=== PATIENT | male | born 1980 | race Caucasian/White ===

== ENCOUNTER 2016-11-07 02:35 | Emergency (ER) | payer SELFPAY ==
[~2016-11-07] VITALS: Ht 175.3 cm; Wt 56.3 kg
[~2016-11-07 02:35] MED LIST: RANI150 PO
[2016-11-07 02:37] VITALS: BP 146/107; PULSE 112; RESP 20; TEMP 98.5; O2SAT 98
[2016-11-07] MEDS ORDERED: ONDANSETRON HCL 4 MG/2 ML VIAL IV ONE (03:15)
[2016-11-07] MEDS ORDERED: SODIUM CHLOR 0.9% 1000 ML INJ 1,000 ML IV ONE (03:15)
[2016-11-07] MEDS ORDERED: PANTOPRAZOLE SODIUM 40 MG VIAL IV PUSH ONE (03:15)
[2016-11-07 03:32] LABS: BACTERIA, URINE OCC /hpf; BLOOD, URINE NEG (NEG); COMMENT (UR) CULT NOT INDICATED; CULTURE IF INDICATED CULT NOT INDICATED; GLUCOSE,URINE NEG (NEG); KETONE, URINE 40 mg/dL (NEG); MUCUS URINE FEW /lpf (OCC); NITRITE,URINE NEG (NEG); URINE COLOR YELLOW (YELLW/STRAW)
[2016-11-07 03:42] LABS: APTT (PATIENT) 27.5 SEC (24.3-30.1); PROTHROMBIN TIME - PATIENT 10.7 SEC (9.8-11.6)
[2016-11-07 03:53] LABS: AUTOMATED NEUTROPHIL # 3.9 TH/MM3 (1.8-7.7); BASOPHIL # 0.1 TH/MM3 (0-0.2); BASOPHIL % 1.6 % (0.0-2.0); EOSINOPHIL # 0.1 TH/MM3 (0-0.4); EOSINOPHIL % 1.9 % (0.0-4.0); HEMATOCRIT 44.3 % (39.0-51.0); HEMO FLAGS DIFF FINAL; LYMPH % 25.4 % (9.0-44.0); LYMPHOCYTE # 1.7 TH/MM3 (1.0-4.8); MEAN CELL VOLUME 92.8 FL (80.0-100.0); MEAN CORPUSCULAR HEMOGLOBIN 32.1 PG (27.0-34.0); MEAN CORPUSCULAR HGB CONC 34.6 % (32.0-36.0); MONO % 13.3 % (0.0-8.0); NEUT % 57.8 % (16.0-70.0); PLATELET COUNT 192 TH/MM3 (150-450); RED BLOOD COUNT 4.77 MIL/MM3 (4.50-5.90); RED CELL DISTRIBUTION WIDTH 12.2 % (11.6-17.2); WHITE BLOOD COUNT 6.7 TH/MM3 (4.0-11.0)
[2016-11-07 04:08] LABS: ALT (GPT) 60 U/L (12-78); ANION GAP 13 MEQ/L (5-15); AST (GOT) 80 U/L (15-37); BLOOD UREA NITROGEN 5 MG/DL (7-18); CHLORIDE 92 MEQ/L (98-107); GLOMERULAR FILTRATION RATE 112 ML/MIN (>89); POTASSIUM 3.1 MEQ/L (3.5-5.1); SODIUM (NA) 134 MEQ/L (136-145)
[2016-11-07 04:18] LABS: ALKALINE PHOSPHATASE 84 U/L (45-117)
[2016-11-07] MEDS ORDERED: POTASSIUM CHLORIDE 25 MEQ EFFERVESCENT TAB PO ONE (04:30)
[2016-11-07] MEDS ORDERED: RANI150T PO (04:43)
--- NOTE | 2016-11-07 04:44 | PD ---
HPI Chief Complaint: GI Complaint Time Seen by Provider: 03:03 Travel History International Travel<30 days: No Contact w/Intl Traveler<30days: No Traveled to known affect area: No History of Present Illness HPI The patient is a 36 year old male who presents to the [facility] emergency department with a history of black tarry stools that began on Sunday night and occurred twice and then 4-5 times this evening. He reports that he has had some stomach upset with heartburn that began 2 weeks ago. He reports that for that he has been taking Rolaids and Pepto-Bismol as needed. He last took Pepto- Bismol yesterday. He reports having a midepigastric abdominal discomfort associated with this. He denies having any chest pain, chest pressure, or shortness of breath. He does report feeling slightly lightheaded, anxious, and having tingling sensations around his mouth and on his cheeks. He denies having any vomiting associated with this. On review of systems, the patient denies any recent fevers, cough, congestion, neck pain, chest pain, shortness of breath, urinary symptoms, or other neurologic symptoms. [facility] Past Medical History Narrative Medical The patient's past medical history is reportedly none. Medical History: Denies Significant Hx Diminished Hearing: No Immunizations Current: Yes Influenza Vaccination: No Past Surgical History Narrative Surgical The patient's past surgical history is significant for an eye surgery. Surgical History: No Previous Surgery Social History Alcohol Use: Yes (OCCASSIONALLY) Tobacco Use: Yes (OCCASIONALLY) Substance Use: No Allergies-Medications (Allergen,Severity, Reaction): Coded Allergies: Doxycycline (Verified Allergy, Mild, THROAT CLOSES UP, 11/07/16) Uncoded Allergies: UNKNOWN ANTIBIOTIC (Allergy, Severe, 06/18/15) Reported Meds & Prescriptions Reported Meds & Active Scripts Active Narrative Medication Pepto-Bismol and Tums Review of Systems Except as stated in HPI: all other systems reviewed are Neg General / Constitutional: No: Fever Eyes: No: Visual changes HENT: No: Headaches Cardiovascular: No: Chest Pain or Discomfort Respiratory: No: Shortness of Breath Gastrointestinal: Positive: Nausea, Diarrhea, Abdominal Pain, Changes in Bowel Habits, Indigestion, No: Vomiting, Hematemesis, Hematochezia, Constipation, Loss of Appetite Genitourinary: No: Dysuria Musculoskeletal: No: Pain Skin: No Rash Neurologic: No: Weakness Psychiatric: No: Depression Endocrine: No: Polydipsia Hematologic/Lymphatic: No: Easy Bruising Physical Exam Narrative General: The patient is a well-developed well-nourished male, slightly anxious appearing on examination, however otherwise in no acute distress. Head and Neck exam: Head is normocephalic atraumatic. Eyes: EOMI, pupils are equal round and reactive to light. Nose: Midline septum with pink mucous membranes Mouth: Dentition unremarkable. Moist mucus membranes. Posterior oropharynx is not erythematous. No tonsillar hypertrophy. Uvula midline. Airway patent. Neck: No palpable lymphadenopathy. No nuchal rigidity. No thyromegaly. Cardiovascular: Sinus tachycardia in the low 100s without murmurs, gallops, or rubs. No pulse deficit to the extremities and simultaneous auscultation and palpation of his radial artery. Lungs: Clear to auscultation bilaterally. No wheezes, rhonchi, or rales. Abdomen: Soft, with midepigastric abdominal discomfort on deep palpation, no other tenderness on palpation of the other quadrants of the abdomen. No guarding, rebound, or rigidity. Normal bowel sounds are audible. No tenderness on palpation of McBurney's point. Henriquez's sign. Extremities: No clubbing, cyanosis, or edema. No calf tenderness on palpation. Back: No spinous process tenderness to palpation. No costovertebral angle tenderness to palpation. Neurologic Exam: Grossly nonfocal. Skin Exam: No rash noted. Intact skin that is warm and dry. RECTAL EXAM: No masses or tenderness, stool is dark brown to black in color. Hemoccult was negative. Data Data Last Documented VS Vital Signs Date Time Temp Pulse Resp B/P Pulse Ox O2 Delivery O2 Flow Rate FiO2 11/07/16 02:37 98.5 112 20 146/107 98 Room Air Orders Complete Blood Count With Diff (11/07/16 03:07) Comprehensive Metabolic Panel (11/07/16 03:07) Prothrombin Time / Inr (Pt) (11/07/16 03:07) Act Partial Throm Time (Ptt) (11/07/16 03:07) Lipase (11/07/16 03:07) Urinalysis - C+S If Indicated (11/07/16 03:07) Westergren Sedimentation Rate (11/07/16 03:07) Thyroid Stimulating Hormone (11/07/16 03:07) Iv Access Insert/Monitor (11/07/16 03:07) Ecg Monitoring (11/07/16 03:07) Oximetry (11/07/16 03:07) Type And Screen (11/07/16 03:07) Sodium Chlor 0.9% 1000 Ml Inj (Ns 1000 M (11/07/16 03:15) Ondansetron Inj (Zofran Inj) (11/07/16 03:15) Pantoprazole Inj (Protonix Inj) (11/07/16 03:15) Potassium Chloride Eff (K-Lyte Cl Eff) (11/07/16 09:00) Potassium Chloride Eff (K-Lyte Cl Eff) (11/07/16 04:30) Labs Laboratory Tests Test 11/07/16 03:15 White Blood Count 6.7 TH/MM3 Red Blood Count 4.77 MIL/MM3 Hemoglobin 15.3 GM/DL Hematocrit 44.3 % Mean Corpuscular Volume 92.8 FL Mean Corpuscular Hemoglobin 32.1 PG Mean Corpuscular Hemoglobin 34.6 % Concent Red Cell Distribution Width 12.2 % Platelet Count 192 TH/MM3 Mean Platelet Volume 8.5 FL Neutrophils (%) (Auto) 57.8 % Lymphocytes (%) (Auto) 25.4 % Monocytes (%) (Auto) 13.3 % Eosinophils (%) (Auto) 1.9 % Basophils (%) (Auto) 1.6 % Neutrophils # (Auto) 3.9 TH/MM3 Lymphocytes # (Auto) 1.7 TH/MM3 Monocytes # (Auto) 0.9 TH/MM3 Eosinophils # (Auto) 0.1 TH/MM3 Basophils # (Auto) 0.1 TH/MM3 CBC Comment DIFF FINAL Differential Comment Erythrocyte Sedimentation Rate 2 mm/hr Prothrombin Time 10.7 SEC Prothromb Time International 1.0 RATIO Ratio Activated Partial 27.5 SEC Thromboplast Time Urine Color YELLOW Urine Turbidity HAZY Urine pH 7.0 Urine Specific [place] 1.006 Urine Protein NEG mg/dL Urine Glucose (UA) NEG mg/dL Urine Ketones 40 mg/dL Urine Occult Blood NEG Urine Nitrite NEG Urine Bilirubin NEG Urine Urobilinogen LESS THAN 2.0 MG/DL Urine Leukocyte Esterase NEG Urine RBC LESS THAN 1 /hpf Urine WBC 1 /hpf Urine Amorphous Sediment RARE Urine Bacteria OCC /hpf Urine Mucus FEW /lpf Microscopic Urinalysis Comment CULT NOT INDICATED Sodium Level 134 MEQ/L Potassium Level 3.1 MEQ/L Chloride Level 92 MEQ/L Carbon Dioxide Level 29.0 MEQ/L Anion Gap 13 MEQ/L Blood Urea Nitrogen 5 MG/DL Creatinine 0.79 MG/DL Estimat Glomerular Filtration 112 ML/MIN Rate Random Glucose 86 MG/DL Calcium Level 9.4 MG/DL Total Bilirubin 1.0 MG/DL Aspartate Amino Transf 80 U/L (AST/SGOT) Alanine Aminotransferase 60 U/L (ALT/SGPT) Alkaline Phosphatase 84 U/L Total Protein 8.4 GM/DL Albumin 4.5 GM/DL Lipase 135 U/L Thyroid Stimulating Hormone 1.970 uIU/ML 3rd Gen Blood Type O POSITIVE Antibody Screen NEGATIVE Blood Bank Comment MDM Medical Decision Making Medical Screen Exam Complete: Yes Emergency Medical Condition: Yes Medical Record Reviewed: Yes Differential Diagnosis Dark stools related to Pepto-Bismol, versus GI bleed, versus peptic ulcer disease, versus pancreatitis Narrative Course During the course of the patients emergency department visit, the patients history, examination, and differential diagnosis were reviewed with the patient. The patient had IV access obtained and blood work sent for analysis. The patient was placed on a telemetry monitor with oximetry and blood pressure monitoring. The patient was provided normal saline 1 L IV fluid bolus, Protonix 40 mg IV The patients laboratory studies were reviewed and remarkable for CBC is remarkable for a white count of 6.7, hemoglobin 15.3, platelets 192 with 13.3 monocytes, CMP is remarkable for sodium of 134, potassium 3.1, chloride 92, BUN 5, AST 80, total protein 8.4, TSH 1.97, lipase 135, PT PTT within normal limits. Urinalysis shows 40 ketones otherwise unremarkable. The patient's results were discussed with him, his questions were answered. The patient was instructed that Pepto-Bismol can cause a side effect of dark/ black stool. Given the patient's recent dyspepsia/heartburn, the patient will be discharged home with a prescription for Zantac. The patient was instructed to avoid anti-inflammatory pain medications and alcohol. The patient is resting comfortably and feels better, is alert and in no distress. The patients results and examination findings were discussed with the patient. The repeat examination is unremarkable and benign. The history, exam, diagnostic testing, and current condition do not suggest any significant pathology to warrant further testing, continued ED treatment, admission, or surgical evaluation at this point. The vital signs have been stable. The patient does not have uncontrollable pain, intractable vomiting, or other significant symptoms. The patient's condition is stable and appropriate for discharge. The patient will pursue further outpatient evaluation with a primary care physician or other designated or consulting physician as indicated in the discharge instructions. The patient expressed understanding and was agreeable with this plan. Diagnosis Primary Impression: Diarrhea Qualified Code: R19.7 - Diarrhea, unspecified type Additional Impression: Dyspepsia Referrals: Primary Care Physician 1 week Patient Instructions: Acute Diarrhea (ED), General Instructions Med/Other Pt SpecificInfo: Prescription(s) given Scripts Ranitidine 150 Mg [id number] Mg PO BID #60 TAB Ref 0 Prov:Yeimy Moraes MD 11/07/16 Disposition: 01 DISCHARGE HOME Condition: Stable Yeimy Moraes MD Nov 07, 2016 04:44
[2016-11-07 04:46] VITALS: RESP 18; O2SAT 100
[2016-11-07 04:47] VITALS: BP 135/81; PULSE 99; RESP 18; O2SAT 100
[2016-11-07] MEDS ORDERED: POTASSIUM CHLORIDE 25 MEQ EFFERVESCENT TAB NG SCH (09:00)
== END 2016-11-07 04:55 | disposition home or self-care (01) ==
LOC: NEPC 02:35
DX: R19.7 Diarrhea, unspecified (principal); R10.13 Epigastric pain; R20.2 Paresthesia of skin; R42 Dizziness and giddiness; Z72.0 Tobacco use
CPT/HCPCS: 80053; 81001; 83690; 84443; 85025; 85610; 85652; 85730; 86850; 86900; 86901; 96361; 96374; 96375; 99284; C9113; J2405; J7030

== ENCOUNTER 2017-03-02 02:17 | Observation (INO) | payer SELFPAY ==
[2017-03-02] VITALS (8 sets, daily range): BP systolic 132–163; BP diastolic 76–94; PULSE 66–100; RESP 14–18; TEMP 98.2–99.2; O2SAT 98–100
[~2017-03-02] VITALS: Ht 175.3 cm; Wt 65.0 kg
[~2017-03-02 02:17] MED LIST changes: -RANI150 PO; +RANI150T PO
[2017-03-02] MEDS ORDERED: OMEP40CA2 PO (02:39)
[2017-03-02] MEDS ORDERED: LORazepam 2 MG/ML VIAL IV PUSH ONE (02:45)
[2017-03-02] MEDS ORDERED: SODIUM CHLORIDE 0.9% FLUSH 10 ML FLUSH IVF PRN (02:45)
[2017-03-02] MEDS ORDERED: ASPIRIN 81 MG CHEW TAB PO ONE (02:45)
[2017-03-02] MEDS ORDERED: NITROGLYCERIN 2% OINT 1 GM PACKET TOPICAL ONE (02:45)
--- NOTE | 2017-03-02 02:46 | PD ---
HPI . Chest pain Chief Complaint: Chest Pain Time Seen by Provider: 02:29 Travel History International Travel<30 days: No Contact w/Intl Traveler<30days: No Traveled to known affect area: No History of Present Illness HPI This patient presents with a chief complaint of chest pain which started about 11:30 PM. The pain has persisted causing him to present to the emergency department. He describes a pressure-like sensation in the center of his chest and radiating to the left arm. He states that the fingers of his left hand feels tingly. He reports some associated shortness of breath. He also reports diaphoresis. He has noted that his pain is exacerbated by exertion. He states that he has had similar symptoms a couple times in the past but that the symptoms were not this severe and he did not seek medical care for them. His pain is currently rated 9/10. [facility] Past Medical History Medical History: Denies Significant Hx Diminished Hearing: No Immunizations Current: Yes Influenza Vaccination: No Past Surgical History Surgical History: No Previous Surgery Social History Alcohol Use: Yes Tobacco Use: Yes Substance Use: No Allergies-Medications (Allergen,Severity, Reaction): Coded Allergies: Doxycycline (Verified Allergy, Mild, THROAT CLOSES UP, 03/02/17) Uncoded Allergies: UNKNOWN ANTIBIOTIC (Allergy, Severe, 06/18/15) Reported Meds & Prescriptions Reported Meds & Active Scripts Active Ranitidine (Ranitidine HCl) 150 Mg Tab 150 Mg PO BID Reported Omeprazole 40 Mg Cap 40 Mg PO DAILY Review of Systems Except as stated in HPI: all other systems reviewed are Neg General / Constitutional: Positive: Other (diaphoresis), No: Fever, Chills Cardiovascular: Positive: Chest Pain or Discomfort Respiratory: Positive: Shortness of Breath Gastrointestinal: Positive: Abdominal Pain, No: Nausea, Vomiting, Diarrhea Skin: Positive Change in Pigmentation Physical Exam Narrative GENERAL: This patient appears very nervous. SKIN: Warm and dry. He has scattered patches of salmon-colored skin which has an irregular border. The patches are flat. He states that this has been present for years. HEAD: Atraumatic. Normocephalic. EYES: Pupils equal and round. Extraocular movements are intact. ENT: No nasal bleeding or discharge. Mucous membranes pink and moist. NECK: Trachea midline. Neck is supple. CARDIOVASCULAR: Regular rate and rhythm. Heart sounds are normal. RESPIRATORY: No accessory muscle use. Lungs are clear with full air movement throughout. GASTROINTESTINAL: Abdomen soft, non-tender, nondistended. MUSCULOSKELETAL: No obvious deformities. No edema. NEUROLOGICAL: Awake and alert. No obvious cranial nerve deficits. Motor grossly within normal limits. Normal speech. PSYCHIATRIC: Appropriate mood and affect; insight and judgment normal. Data Data Last Documented VS Vital Signs Date Time Temp Pulse Resp B/P Pulse Ox O2 Delivery O2 Flow Rate FiO2 03/02/17 02:36 96 16 163/94 98 Room Air 03/02/17 02:21 99.2 Orders Electrocardiogram (03/02/17 02:33) Basic Metabolic Panel (Bmp) (03/02/17 02:33) Ckmb (Isoenzyme) Profile (03/02/17 02:33) Complete Blood Count With Diff (03/02/17 02:33) Magnesium (Mg) (03/02/17 02:33) Troponin I (03/02/17 02:33) Chest, Single Ap (03/02/17 02:33) Ecg Monitoring (03/02/17 02:33) Iv Access Insert/Monitor (03/02/17 02:33) Oximetry (03/02/17 02:33) Aspirin Chew (Aspirin Chew) (03/02/17 02:45) Sodium Chloride 0.9% Flush (Ns Flush) (03/02/17 02:45) Lorazepam Inj (Ativan Inj) (03/02/17 02:45) Nitroglycerin 2% Oint (Nitroglycerin 2% (03/02/17 02:45) Drug Screen, Random Urine (03/02/17 03:12) CKMB (03/02/17 02:40) CKMB% (03/02/17 02:40) Admit Order (Ed Use Only) (03/02/17 ) Clinical Auditor / Telemetry [email or web address] (03/02/17 03:56) Vital Signs (Adult) Q4H (03/02/17 03:56) Diet Npo (03/03/17 Breakfast) Labs Laboratory Tests Test 03/02/17 02:40 White Blood Count 8.2 TH/MM3 Red Blood Count 4.42 MIL/MM3 Hemoglobin 14.4 GM/DL Hematocrit 41.4 % Mean Corpuscular Volume 93.7 FL Mean Corpuscular Hemoglobin 32.5 PG Mean Corpuscular Hemoglobin 34.7 % Concent Red Cell Distribution Width 12.2 % Platelet Count 174 TH/MM3 Mean Platelet Volume 8.1 FL Neutrophils (%) (Auto) 72.8 % Lymphocytes (%) (Auto) 13.6 % Monocytes (%) (Auto) 12.2 % Eosinophils (%) (Auto) 0.9 % Basophils (%) (Auto) 0.5 % Neutrophils # (Auto) 5.9 TH/MM3 Lymphocytes # (Auto) 1.1 TH/MM3 Monocytes # (Auto) 1.0 TH/MM3 Eosinophils # (Auto) 0.1 TH/MM3 Basophils # (Auto) 0.0 TH/MM3 CBC Comment DIFF FINAL Differential Comment Sodium Level 134 MEQ/L Potassium Level 3.2 MEQ/L Chloride Level 95 MEQ/L Carbon Dioxide Level 29.5 MEQ/L Anion Gap 10 MEQ/L Blood Urea Nitrogen 8 MG/DL Creatinine 0.95 MG/DL Estimat Glomerular Filtration 91 ML/MIN Rate Random Glucose 114 MG/DL Calcium Level 9.3 MG/DL Magnesium Level 1.6 MG/DL Total Creatine Kinase 117 U/L Creatine Kinase MB LESS THAN 0.5 NG/ML Troponin I LESS THAN 0.02 NG/ML MDM Medical Decision Making Medical Screen Exam Complete: Yes Emergency Medical Condition: Yes Interpretation(s) EKG shows a normal sinus rhythm. He has LVH. This is unchanged from previous. Differential Diagnosis Differential diagnosis of chest pain includes but is not limited to musculoskeletal pain, pulmonary embolism, acute coronary syndrome, pneumonia, pleurisy Narrative Course Patient presents with the chief complaint of chest pain which he describes as a pressure-like sensation. It radiates to the left arm. It is associated with shortness of breath and diaphoresis. Cardiac workup has been initiated. The patient is extremely nervous appearing so he has been given Ativan. He has also been given aspirin and nitroglycerin. If his workup here is negative, I feel that he needs to be admitted to the chest pain center for further evaluation. Last Impressions Chest X-Ray 03/02/17 0233 Signed Impressions: Service Date/Time: Thursday, March 02, 2017 02:31 - CONCLUSION: No acute cardiopulmonary disease identified. Александр Hernández MD The chest x-ray was independently viewed by me. CBC & BMP Diagram 03/02/17 02:40 Initial cardiac enzymes are normal. Admission to the [facility] was discussed with the patient. He is agreeable. Diagnosis Primary Impression: Chest pain Qualified Code: R07.9 - Chest pain, unspecified type Admitting Information Admitting Physician Requests: Observation Condition: Stable Yudelka Galloway MD Mar 02, 2017 02:45
--- NOTE | 2017-03-02 02:58 | RADRPT ---
EXAM DATE/TIME: 03/02/2017 02:31 [place] COMPARISON: No previous studies available for comparison. INDICATIONS : Chest pain MEDICAL HISTORY : None. SURGICAL HISTORY : None. ENCOUNTER: Initial ACUITY: 1 day PAIN SCORE: 9/10 LOCATION: Left chest FINDINGS: Single AP view of the chest. The lungs are clear. Cardiomediastinal silhouette within normal limits. No evidence of pleural effusion or pneumothorax. CONCLUSION: No acute cardiopulmonary disease identified. Александр Hernández MD on March 02, 2017 at 2:56 Board Certified Radiologist. This report was verified electronically.
[2017-03-02 03:02] LABS: AUTOMATED NEUTROPHIL # 5.9 TH/MM3 (1.8-7.7); BASOPHIL % 0.5 % (0.0-2.0); EOSINOPHIL # 0.1 TH/MM3 (0-0.4); EOSINOPHIL % 0.9 % (0.0-4.0); HEMATOCRIT 41.4 % (39.0-51.0); HEMO FLAGS DIFF FINAL; LYMPH % 13.6 % (9.0-44.0); LYMPHOCYTE # 1.1 TH/MM3 (1.0-4.8); MEAN CELL VOLUME 93.7 FL (80.0-100.0); MEAN CORPUSCULAR HEMOGLOBIN 32.5 PG (27.0-34.0); MEAN CORPUSCULAR HGB CONC 34.7 % (32.0-36.0); MONO % 12.2 % (0.0-8.0); NEUT % 72.8 % (16.0-70.0); PLATELET COUNT 174 TH/MM3 (150-450); RED BLOOD COUNT 4.42 MIL/MM3 (4.50-5.90); RED CELL DISTRIBUTION WIDTH 12.2 % (11.6-17.2); WHITE BLOOD COUNT 8.2 TH/MM3 (4.0-11.0)
[2017-03-02 03:19] LABS: ANION GAP 10 MEQ/L (5-15); BICARBONATE 29.5 MEQ/L (21.0-32.0); BLOOD UREA NITROGEN 8 MG/DL (7-18); CHLORIDE 95 MEQ/L (98-107); GLOMERULAR FILTRATION RATE 91 ML/MIN (>89); MAGNESIUM 1.6 MG/DL (1.5-2.5); POTASSIUM 3.2 MEQ/L (3.5-5.1); SODIUM (NA) 134 MEQ/L (136-145)
[2017-03-02 03:22] LABS: CREATINE KINASE 117 U/L (39-308)
[2017-03-02 03:35] LABS: CKMB LESS THAN 0.5 NG/ML (0.5-3.6)
[2017-03-02] MEDS ORDERED: ACETAMINOPHEN 325 MG TAB PO PRN (04:00)
[2017-03-02 06:59] LABS: CREATINE KINASE 94 U/L (39-308)
--- NOTE | 2017-03-02 07:50 | HHI.HP ---
HPI Primary Care Physician No Primary Care Physician Chief Complaint Chest pain History of Present Illness 36-year-old male with history of GERD presents to the emergency room for further evaluation of chest pain. Onset 11:00 PM while at work. Location substernal. Characterized as someone "sitting on my chest." Radiation to left arm and bilateral shoulder blades. Left upper arm felt heavy. Left forearm and hand described as numbness and tingling. Duration hours. Around 2am, pain persists therefore he was encouraged by his friends to come to ER. No particular position and movement makes pain better or worse. Breathing did not make pain better or worse. Nitroglycerin given in ER decrease pain "somewhat after a few minutes." No known precipitating factors. Endorses similar pain in the past although never lasted as long or as severe. Endorses recently increased his omeprazole to 80 mg daily and ranitidine routine to 300 mg twice a day due to uncontrolled acid reflux. Currently has substernal chest "soreness " without radiation of pain. Review of Systems General: No fatigue,weakness, fever, chills, recent illness, or change in appetite. Reports pain in his general state of health other than uncontrolled acid reflux symptoms and intermittent bowel changes. HEENT: No CULLEN, no dysphasia CV: As stated above. No palpitations, intermittent leg pain, or dizziness. RESP: No SOB, cough, wheeze, history of asthma, recent URI. GI: No nausea or vomiting. Reports bowel changes of both diarrhea and constipation with occasional mucus and blood in stool. Lower abdominal intermittent pressure. No distention. No change in appetite. Reports unintentional weight loss states "my my clothes are getting loose." : No dysuria EXT: No lower leg edema, no paraesthesias MS: No discomfort or change in ROM NEURO: No difficulty with balance, LOC, motor/sensory deficits PSYCH: No anxiety, depression, or suicidal ideation SKIN: No rashes, no concerning lesions Past Family Social History Allergies: Coded Allergies: Doxycycline (Verified Allergy, Mild, THROAT CLOSES UP, 03/02/17) Uncoded Allergies: UNKNOWN ANTIBIOTIC (Allergy, Severe, 06/18/15) Past Medical History GERD Past Surgical History None Reported Medications Active Ranitidine (Ranitidine HCl) 300 Mg PO BID Omeprazole 80 Mg PO DAILY Recently doubled ranitidine and omeprazole doses in the last 2 weeks Active Ordered Medications Current Medications Medications (Trade) Dose Ordered Sig/Claus Route Start Time Stop Time Status Last Admin (NS Flush) 2 ml UNSCH PRN IVF 03/02/17 02:45 (Tylenol) 650 mg Q4H PRN PO 03/02/17 04:00 Family History Unknownpatient adopted Social History No known diabetes, hypertension, or hyperlipidemia. Endorses drinking 7-8 drinks daily 5-6 times/weekly. Smokes 1 pack/weekly. Denies any illegal drug use. Active. 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 Past cardiac testing None Physical Exam Vital Signs Vital Signs Date Time Temp Pulse Resp B/P Pulse Ox O2 Delivery O2 Flow Rate FiO2 03/02/17 05:07 98.2 74 18 136/76 99 03/02/17 04:45 75 03/02/17 04:15 100 03/02/17 04:03 89 16 134/79 100 Room Air 03/02/17 02:36 96 16 163/94 98 Room Air 03/02/17 02:30 89 100 Room Air 03/02/17 02:21 99.2 100 16 146/92 99 Room Air Physical Exam GENERAL: Alert WN, WD, NAD, male HEAD: NC, AT NECK: Supple, no masses, trachea midline CV: RRR, without murmur, rub, gallop, no JVD, S1-S2 no S3-S4. RESP: Clear lungs throughout bilateral, no crackles, wheeze, rhonchi, symmetrical chest rise, nonlabored, able to speak in full sentences ABD: Soft, NT, ND, no masses, positive bowel tones EXT: Pulses +24, no dependent edema MS: Normal tone 4 extremities, nontender, no obvious deformities, full range of motion NEURO: CN II through CN XII grossly intact, motor strength 5/5, gait WNL PSYCH: A+O 3, flat affect, appropriate speech, appropriate mood and affect, insight and judgment SKIN: Normal turgor, normal texture, no lesions, no rashes, brisk cap refill, even hair distribution Laboratory Laboratory Tests Test 03/02/17 03/02/17 02:40 05:59 White Blood Count 8.2 Red Blood Count 4.42 Hemoglobin 14.4 Hematocrit 41.4 Mean Corpuscular Volume 93.7 Mean Corpuscular Hemoglobin 32.5 Mean Corpuscular Hemoglobin 34.7 Concent Red Cell Distribution Width 12.2 Platelet Count 174 Mean Platelet Volume 8.1 Neutrophils (%) (Auto) 72.8 Lymphocytes (%) (Auto) 13.6 Monocytes (%) (Auto) 12.2 Eosinophils (%) (Auto) 0.9 Basophils (%) (Auto) 0.5 Neutrophils # (Auto) 5.9 Lymphocytes # (Auto) 1.1 Monocytes # (Auto) 1.0 Eosinophils # (Auto) 0.1 Basophils # (Auto) 0.0 CBC Comment DIFF FINAL Differential Comment Sodium Level 134 Potassium Level 3.2 Chloride Level 95 Carbon Dioxide Level 29.5 Anion Gap 10 Blood Urea Nitrogen 8 Creatinine 0.95 Estimat Glomerular Filtration 91 Rate Random Glucose 114 Calcium Level 9.3 Magnesium Level 1.6 Total Creatine Kinase 117 94 Creatine Kinase MB LESS THAN 0.5 Troponin I LESS THAN 0.02 LESS THAN 0.02 Result Diagram: 03/02/17 0240 03/02/17 024 Imaging Last Impressions Chest X-Ray 03/02/17232 Signed Impressions: Service Date/Time: Thursday, March 02, 2017 02:31 - CONCLUSION: No acute cardiopulmonary disease identified. Александр Hernández MD Course EKG Normal sinus rhythm, criteria for LVH Assessment and Plan Assessment and Plan #1 Chest painadmitted to chest pain center. Ruled out with 3 sets of EKGs, cardiac enzymes, and monitored overnight. Seen and evaluated by Dr. Demi Schmidt. Will proceed with exercise stress test. Patient agreeable to plan of care. Instructed him to follow-up with an echocardiogram as an outpatient for EKG findings of LVH. #2 GERDcontinue omeprazole and ranitidine. He has been strongly encouraged to establish with a PCP and to follow-up a GI specialist regarding his concern of uncontrolled GERD. Mandatory GI referral would be an option however not anemic and is stable at present. Encouraged him to quit drinking alcohol. #3 Tobacco use-Strongly encouraged and stressed importance of tobacco cessation. Discussed and counseled patient to quit smoking. #4 Alcohol abuse-Counseled on risk of alcohol abuse, encouraged stopped drinking and consider alcoholic support group. Explained in length effects on body with excessive, extermination supervisor alcohol abuse. Case management referral for possible [facility] blue card to assist him with a GI follow-up and outpatient echocardiogram. Candice Pennington Mar 02, 2017 07:50
[2017-03-02] MEDS ORDERED: ONDANSETRON HCL 4 MG/2 ML VIAL IV PRN (08:30)
[2017-03-02] MEDS ORDERED: POTASSIUM CHLORIDE 20 MEQ CONTROLLED RELEASE TAB PO ONE (08:30)
[2017-03-02] MEDS ORDERED: NITROGLYCERIN 0.4 MG SL 25 TABS/BTL SL PRN (08:30)
[2017-03-02 10:37] LABS: CREATINE KINASE 93 U/L (39-308)
[2017-03-02] MEDS ORDERED: NON-FORMULARY DRUG (Ranitidine 150 MG) PO SCH (11:30)
[2017-03-02] MEDS ORDERED: PANTOPRAZOLE SOD 40 MG DELAYED RELEASE TAB PO SCH (12:00)
--- NOTE | 2017-03-02 13:54 | RADRPT ---
EXAM DATE/TIME: 03/02/2017 10:59 [facility] COMPARISON: CHEST SINGLE AP, March 02, 2017, 2:31. INDICATIONS : Substernal chest pain radiating to left arm. Angina DOSE: 25.6 mCi Tc99m Myoview at stress 8.1 mCi Tc99m Myoview at rest REST HEART RATE: 111 BPM TARGET HEART RATE: 158 BPM MAX HEART RATE: 170 BPM REST BLOOD PRESSURE: 160/90 mmHg MAX BLOOD PRESSURE: 172/100 mmHg EJECTION FRACTION: 63% MEDICAL HISTORY : Smoker. SURGICAL HISTORY : None. ENCOUNTER: Initial ACUITY: 2 days PAIN SCALE: 2/10 LOCATION: Substernal chest TECHNIQUE: The patient underwent upright treadmill exercise in the chest pain center. Continuous ECG tracing wa s monitored during stress. Gated SPECT imaging was performed after stress, and conventional SPECT im aging was performed at rest. The examination was performed on a SPECT/CT scanner, both attenuation-c orrected and non-corrected datasets were reviewed. FINDINGS: DISTRIBUTION: The maximum perfused segment at stress is in the anterolateral wall. PERFUSION STUDY: The pattern of perfusion at stress is within normal limits. GATED STUDY: There is intact wall motion and thickening without hypokinetic or dyskinetic segments. CONCLUSION: Unremarkable study. RISK CATEGORY: Low (<1% Annual Mortality Rate) Alin Lockett MD on March 02, 2017 at 13:51 Board Certified Radiologist. This report was verified electronically.
--- NOTE | 2017-03-02 14:14 | HHI.DCPOC ---
Discharge Care Plan Diagnosis: (1) Atypical chest pain (2) GERD (gastroesophageal reflux disease) (3) Tobacco abuse (4) Alcohol abuse Goals to Promote Your Health * To prevent worsening of your condition and complications * To maintain your health at the optimal level Directions to Meet Your Goals Take your medications as prescribed Follow your dietary instruction Follow activity as directed Keep your appointments as scheduled Take your immunizations and boosters as scheduled If your symptoms worsen call your PCP, if no PCP go to Urgent Care Center or Emergency Room Smoking is Dangerous to Your Health. Avoid second hand smoke Call the 24-hour hour crisis hotline for domestic abuse at [facility] Mar 02, 2017 14:14
--- NOTE | 2017-03-02 16:10 | TR ---
Date Performed: 03/02/2017 Time Performed: 11:42:15 DOCTOR: Demi Schmidt DRUG LIST: CLINICAL HISTORY: REASON FOR TEST: Chest pain REASON FOR ENDING: OBSERVATION: CONCLUSION: Miguel A protocol completed. Stopped sec to exceeding target heart rate and leg fatigue . Maximum QT=496 Target HR Achieved=91.0% Maximum ET=823/100 Total Exercise Time=7:31. No reprod ches t pain. Good exercise tolerance. No ectopy. Hypertensive bp response. Recovery quick and unremarkable . Nuclear images pending. COMMENTS:
--- NOTE | 2017-03-02 16:10 | EKG ---
Date Performed: 03/02/2017 Time Performed: 10:28:34 PTAGE: 36 years EKG: Sinus rhythm VOLTAGE CRITERIA FOR LVH ABNORMAL ECG Since PREVIOUS TRACING , no significant change noted PREVIOUS TRACIN03/02/2017 05.52 DOCTOR: Demi Schmidt Interpretating Date/Time 03/02/2017 16:08:20
--- NOTE | 2017-03-02 16:14 | TR ---
Date Performed: 03/02/2017 Time Performed: 09:11:05 DOCTOR: Demi Schmidt DRUG LIST: CLINICAL HISTORY: REASON FOR TEST: Chest pain REASON FOR ENDING: OBSERVATION: CONCLUSION: Miguel A protocol completed. Stopped sec to reaching target heart rate. Maximum AI=055 Target HR Achieved=89.0% Maximum TW=871/100 Total Exercise Time=3:43. No reprod chest pain. T wave i nversions anterior lateral at peak. St depression occassionally all leads. Hypertensive bp response. Good exercise tolerance. Recovery quick and unremarkable. COMMENTS:
--- NOTE | 2017-03-02 16:16 | EKG ---
Date Performed: 03/02/2017 Time Performed: 05:52:58 PTAGE: 36 years EKG: Sinus rhythm VOLTAGE CRITERIA FOR LVH ABNORMAL ECG Since PREVIOUS TRACING , no significant change noted PREVIOUS TRACIN03/02/2017 02.33 DOCTOR: Demi Schmidt Interpretating Date/Time 03/02/2017 16:15:22
--- NOTE | 2017-03-02 16:17 | EKG ---
Date Performed: 03/02/2017 Time Performed: 02:33:21 PTAGE: 36 years EKG: Sinus rhythm WITH SINUS ARRHYTHMIA POSSIBLE LEFT ATRIAL ENLARGEMENT POSSIBLE RIGHT VENTRICULAR CONDUCTION DELAY P OSSIBLE LEFT VENTRICULAR HYPERTROPHY ABNORMAL ECG Since PREVIOUS TRACING , no significant change noted PREVIOUS TRACIN07/30/2013 12.38 DOCTOR: Demi Schmidt Interpretating Date/Time 03/02/2017 16:16:20
== END 2017-03-02 15:39 | disposition home or self-care (01) ==
LOC: NEPE 02:17 → NEDA 04:04 → NEPFCDU 04:53
PROVIDERS: ADMIT Internal Medicine Interventional Cardiology; ATTEND Internal Medicine Interventional Cardiology
DX: R07.89 Other chest pain (principal); K21.9 Gastro-esophageal reflux disease without esophagitis; F17.200 Nicotine dependence, unspecified, uncomplicated; F10.10 Alcohol abuse, uncomplicated; R20.0 Anesthesia of skin; R20.2 Paresthesia of skin; R07.2 Precordial pain; M79.602 Pain in left arm; I20.9 Angina pectoris, unspecified; R06.02 Shortness of breath; R61 Generalized hyperhidrosis; I49.8 Other specified cardiac arrhythmias; R94.31 Abnormal electrocardiogram [ECG] [EKG]; Z79.899 Other long term (current) drug therapy
CPT/HCPCS: 71010; 78452; 80048; 82550; 82552; 83735; 84484; 85025; 93005; 93017; 96374; 99285; A9502; G0378; J2060